=== PATIENT | male | born 1980 | race Caucasian/White ===

== ENCOUNTER 2020-05-27 07:58 | Emergency (ER) | payer OTHER ==
[~2020-05-27 07:58] MED LIST: HUMALOG100 UNIT/1 SC; NAPROXEN500 MG PO; SKELAXIN800 MG PO
[2020-05-27 08:40] LABS: BASOPHIL 0.9 % (0-2); EOSINOPHIL 0.8 % (0-5); HCT 45.9 % (42.0-52.0); HGB 15.9 g/dl (13.2-18.0); MCH 31.4 pg (25.0-31.0); MCHC 34.6 g/dL (32.0-36.0); MCV 90.5 fL (78.0-100.0); MONOCYTE 6.3 % (0-12); MPV 10.5 fL (6.0-9.5); NEUTROPHIL 73.9 % (41-80); NRBC 0; PLT 316 K/uL (150-400); RBC 5.07 M/uL (4.70-6.00); RDW 12.2 % (11.5-14.0); WBC 7.8 K/uL (4.0-10.5)
[2020-05-27 08:40] LABS: BILIRUBIN 1+ mg/dL (NEGATIVE); BLOOD NEGATIVE Ery/uL (NEGATIVE); CLARITY CLEAR (CLEAR); COLOR YELLOW (YELLOW); GLUCOSE (U) NORMAL (NORMAL); LEUKOCYTES NEGATIVE Leu/uL (NEGATIVE); NITRITE NEGATIVE (NEGATIVE); PROTEIN NEGATIVE (NEGATIVE); UROBILINOGEN 0.2 mg/dL (0.2-1.0)
[2020-05-27 09:03] LABS: LACTIC ACID 1.2 mmol/L (0.4-1.9)
[2020-05-27 09:08] LABS: BILIRUBIN - TOTAL 0.6 mg/dL (0.2-1.0); BUN/CREAT RATIO (CALC) 17.3 RATIO; CREATININE 0.75 mg/dL (0.67-1.17); GLOBULIN (CALCULATION) 3.4 g/dL; TOTAL PROTEIN 7.4 g/dL (6.4-8.2)
[2020-05-27 10:03] LABS: AMPHETAMINES NEGATIVE (NEGATIVE); BARBITURATES NEGATIVE (NEGATIVE); ECSTASY (MDMA) NEGATIVE (NEGATIVE); MARIJUANA (THC) POSITIVE (NEGATIVE); METHADONE NEGATIVE (NEGATIVE); OPIATES NEGATIVE (NEGATIVE); OXYCODONE POSITIVE (NEGATIVE)
[2020-05-27] MEDS ORDERED: MIRALAX17 GM PO (10:28)
== END 2020-05-27 10:25 | disposition home or self-care (01) ==
LOC: FER 07:58
PROVIDERS: Emergency Medicine
DX: K59.00 Constipation, unspecified (principal); R63.4 Abnormal weight loss; E10.9 Type 1 diabetes mellitus without complications; F17.200 Nicotine dependence, unspecified, uncomplicated; Z98.890 Other specified postprocedural states
CPT/HCPCS: 36415; 80053; 80305; 81003; 83605; 83690; 84443; 85025; J7030; Q9967